=== PATIENT | male | born 1950 | race Caucasian/White ===

== ENCOUNTER 2018-11-21 12:18 | Outpatient (CLI) | payer MEDICARE, BC ==
--- NOTE | 2018-11-21 15:34 | MRI ---
MRI RIGHT SHOULDER WITHOUT IV CONTRAST: HISTORY: M25.511, rotator cuff arthropathy, right shoulder. Right shoulder pain following a fall and injury. FINDINGS: Severe AC joint arthrosis with some subchondral cystic changes with some downsloping of the anterior acromion. Very irregular full-thickness tear of the supraspinatus tendon with partial retraction and what appears to be some significant granulation tissue. Severe tendinopathy of the infraspinatus te ndon with partial-thickness undersurface tear. Irregular, complete biceps tendon tear with no intact intraarticular biceps and a very blunted biceps anchor and superior labrum. Extensive tear of subsc apularis tendon, at the insertion, with considerable attenuation and retraction, with a large interst itial tear. There is some intramuscular and perimuscular fat stranding of the anterior deltoid muscl e, evidence for strain. Multiple greater tuberosity intraosseous cysts, up to 1.3 cm. IMPRESSION: 1. Extensive rotator cuff tears, as above. 2. Completely torn, retracted biceps tendon with no intact intraarticular biceps tendon and a very a bnormal blunted biceps anchor and superior labrum. 3. Abnormal intramuscular and perimuscular fat stranding involving the anterior deltoid muscle, evid ence for strain. 4. Multiple fairly large, intraosseous cystic ganglia or degenerative cysts involving the greater tu berosity. 5. Severe acromioclavicular joint arthrosis changes. 6. Mild muscle volume loss of the supraspinatus muscle and moderate muscle volume loss of the subsca pularis muscle. POS: [facility]
--- NOTE | 2018-11-21 15:40 | MRI ---
LEFT SHOULDER MRI WITHOUT IV CONTRAST 11/21/18 HISTORY: M25.512 - tear of left rotator cuff, injury following a fall. Severe AC joint arthrosis changes are noted with prominent subchondral cystic changes. There is some downsloping of the anterior acromion and some prominent undersurface spurring of the lateral clavicle . Full thickness irregular tear of the tendinotic appearing supraspinatus tendon without significant retraction. There appears to be an interstitial component. There is also an incomplete thickness prim arily undersurface irregular tear of very tendinotic infraspinatus tendon with associated sentinel cy st at the myotendinous junction region. Small intramuscular lipoma in the supraspinatus muscle. Full thickness tear of the biceps tendon with a very severely blunted biceps anchor and superior labrum. V caio irregular full thickness insertional tear of subscapularis tendon particularly superiorly. Abnorm al biceps emily complex region. Abnormal fat stranding within the anterior deltoid muscle with some intramuscular and perimuscular fat stranding, evidence for muscle strain. Moderate muscle volume loss of the subscapularis muscle and mild muscle volume loss of the supraspinatus muscle. Small subchondr al interosseous cyst of the humerus greater tuberosity. IMPRESSION: Extensive rotator cuff tears including biceps tendon intra-articularly and subscapularis tendon. Sara re AC joint arthrosis. Intra and perimuscular fat stranding around the anterior deltoid muscle eviden ce for strain. POS: [facility]
== END 2018-11-21 12:19 | disposition home or self-care (01) ==
LOC: TBSIIMAG 12:18
PROVIDERS: ATTEND Orthopaedic Surgery
DX: M75.102 Unspecified rotator cuff tear or rupture of left shoulder, not specified as traumatic (principal); M25.511 Pain in right shoulder; M25.512 Pain in left shoulder; M12.811 Other specific arthropathies, not elsewhere classified, right shoulder; S46.812A Strain of other muscles, fascia and tendons at shoulder and upper arm level, left arm, initial encounter

== ENCOUNTER 2018-12-05 13:26 | Outpatient (CLI) | payer MEDICARE, BC ==
[2018-12-05 14:35] LABS: #Basophils 0.1 thou/uL (0.0-0.2); #Eosinphils 0.1 thou/uL (0.0-0.7); #Lymphocytes 1.8 thou/uL (1.20-3.40); #Monocytes 0.6 thou/uL (0.11-0.59); #Neutrophils 4.7 thou/uL (1.40-6.50); %Basophils 0.7 % (0.0-1.0); %Eosinophils 1.1 % (0.0-10.0); %Lymphocytes 24.8 % (21.0-51.0); %Monocytes 8.2 % (0.0-10.0); %Neutrophils 65.2 % (42.0-75.0); Hemoglobin 14.1 g/dL (14.0-18.0); Mean Corpuscular Hemoglobin 29.2 pg (27.0-31.0); Mean Corpuscular Volume 88.5 fL (78.0-98.0); Mean Platelet Volume 8.1 fL (7.4-10.4); Platelet Count 241 thou/uL (130-400); RBC Distribution Width 13.1 % (11.5-14.5); Red Blood Cell (RBC) Count 4.84 mill/uL (4.70-6.10); White Blood Cell (WBC) Count 7.2 thou/uL (4.8-10.8)
[2018-12-05 15:03] LABS: Anion Gap 12 mmol/L (10-20); BUN (Urea Nitrogen) 23 mg/dL (8.4-25.7); Calc. Creatinine Clearance 0 mL/min (70-130); Calcium 9.8 mg/dL (7.8-10.44); Carbon Dioxide 30 mmol/L (23-31); Chloride 101 mmol/L (98-107); Estimated GFR-MDRD 75; Glucose 99 mg/dL (80-115); Potassium 3.7 mmol/L (3.5-5.1); Sodium 139 mmol/L (136-145)
--- NOTE | 2018-12-08 17:56 | EKG ---
Test Reason : Blood Pressure : / mmHG Vent. Rate : 054 BPM Atrial Rate : 054 BPM P-R Int : 182 ms QRS Dur : 108 ms QT Int : 414 ms P-R-T Axes : 040 -42 047 degrees QTc Int : 392 ms Sinus bradycardia Left axis deviation Incomplete right bundle branch block Possible Anterior infarct , age undetermined Abnormal ECG When compared with ECG of 02-JAN-2011 22:13, Borderline criteria for Anterior infarct are now Present Confirmed by SHAWN GASPAR (2) on 12/08/2018 5:55:59 PM Referred By: IERO Confirmed By:SHAWN GASPAR
== END 2018-12-05 13:27 | disposition home or self-care (01) ==
LOC: LABBT 13:26
PROVIDERS: ATTEND Orthopaedic Surgery
DX: Z01.818 Encounter for other preprocedural examination (principal); M75.102 Unspecified rotator cuff tear or rupture of left shoulder, not specified as traumatic
CPT/HCPCS: 80048; 85025; 93005; 93010

== ENCOUNTER 2018-12-08 07:06 | Day surgery (SDC) | payer MEDICARE, BC ==
[2018-12-06 01:17] VITALS: BMI 30.4
[2018-12-08] MEDS ORDERED: Sodium Chloride 0.9% 100 ML ONE (07:56)
[2018-12-08] MEDS ORDERED: Tranexamic Acid 1,000 MG/10 ML VIAL ONE (07:56)
[2018-12-08] MEDS ORDERED: Vancomycin HCl 1.5 GM in Sodium Chloride 0.9% 250 ML 300 ML IVPB SCH (08:00)
[2018-12-08] MEDS ORDERED: Midazolam HCl 2 mg/2 ml Vial ONE (08:16)
[2018-12-08] MEDS ORDERED: Fentanyl 100 MCG/2 ML VIAL ONE ×2 (08:16→09:14)
[2018-12-08] MEDS ORDERED: traMADol HCl 50 MG TAB PO PRN ×2 (09:10)
[2018-12-08] MEDS ORDERED: Ropivacaine 0.2% 550 ML 550 ML NERVE BLCK SCH (09:10)
[2018-12-08] MEDS ORDERED: Ketorolac Tromethamine 30 MG/ML VIAL IVP PRN (09:10)
[2018-12-08] MEDS ORDERED: Promethazine HCl 25 MG/ML VIAL IM PRN (09:10)
[2018-12-08] MEDS ORDERED: Ondansetron PF 4 MG/2 ML Vial IVP PRN (09:10)
[2018-12-08] MEDS ORDERED: Zolpidem Tartrate 5 MG TAB PO PRN (09:10)
[2018-12-08] MEDS ORDERED: HYDROcodone/Acetaminophen 10/325 mg Tablet PO PRN ×2 (09:10)
[2018-12-08] MEDS ORDERED: Fentanyl 100 MCG/2 ML VIAL SLOW IVP PRN (09:11)
--- NOTE | 2018-12-08 17:54 | OP ---
DATE OF PROCEDURE: 12/08/2018 PREOPERATIVE DIAGNOSES: Left shoulder impingement, rotator cuff tear, acromioclavicular joint arthritis, and torn biceps tendon. POSTOPERATIVE DIAGNOSES: Left shoulder impingement, rotator cuff tear, acromioclavicular joint arthritis, and torn biceps tendon. PROCEDURES PERFORMED: 1. Left open subacromial decompression with open rotator cuff repair. 2. Open distal clavicle excision. 3. Open biceps tenotomy. NURSE RESEARCHER: Juwan Richards PA-C BLOOD LOSS: 50. COMPLICATIONS: None. ANESTHESIA: The patient had general anesthetic as well as preoperative block. IMPLANTS: Our implants to the left shoulder were 2 double loaded titanium anchors as well as 2 [employer] 4.75 mm SwiveLocks for a double row repair. DISPOSITION: He did go to recovery room in stable condition. INDICATIONS: A 68-year-old male, who fell and since that time has been unable to raise up his left arm. He was found to have a large cuff tear and at this time, wants to have this repaired. DESCRIPTION OF PROCEDURE: After all verbal consent forms were explained and signed, he was taken to the operative room and at this time, he was given general anesthetic. Once the level of anesthesia was appropriate, he was placed in a modified beach chair position with all bony prominences well padded. The left shoulder and upper extremity were then prepped draped in standard surgical fashion. Incision was made with 10 blade down through skin. Bovie was used to coagulate any brisk venous bleeding. We then went along the anterior third of the acromion down through raphe in the deltoid, taking this centrally until we got beyond the AC joint, making sure this was full thickness flap. We then took this off, exposing the anterior acromion and at the AC joint, T'd this and took this back to expose the distal clavicle as well. At this time, a Vito was used to protect the underlying soft tissue. A saw was used to perform an anteroinferior acromioplasty as well as removed the end of the clavicle. The edges were smoothed off with a rasp and we then placed a small amount of bone wax onto the bleeding cancellous bone. We then thoroughly irrigated and dried. At this time, we went towards repairing our cuff. We were able to remove the bursa from off the underlying cuff. We were able to easily find the rotator cuff tear. The new blade was used to excise the edge of the rotator cuff tissue to get down to good tissue. We then removed soft tissue off its tuberosity insertion site. We then raised up the cuff looking for the biceps tendon. There was just a couple of little fibers left. This was essentially stuck to the undersurface of the cuff. We did open up the bicipital groove just to make sure that the biceps tendon was not here in the screw and we were able to remove synovitic tissue from the groove itself. The remaining few fibers of the biceps were released in tenotomy fashion. At this time, we then placed 2 titanium double loaded anchors at the articular edge into the head of the humerus. These were then placed through the rotator cuff using a free needle in mattress fashion. Once these were then tied, we then performed our double row repair by taking 1 limb from each set of sutures and taken this anterior and posteriorly. We punched and placed a 4.75 SwiveLock x2 for our double row repair. The arm was then taken through full range of motion and the cuff was found to have no tension on it whatsoever. At this time, we thoroughly irrigated and dried. We then repaired our soft tissue by performing Mark-Nirav sutures through the deltoid and then taking this through the acromion bone with the needle. We then sewed our soft tissue at the AC joint over top of this with multiple interrupted big Vicryls, and we also overran our deltoid fascia. We then used 2-0 Vicryl and casimiro to close skin. A sterile bulky dressing was applied and at this time, he was awakened and taken to recovery room in stable condition after placing a sling on. All counts were correct at the end of the case and he did receive preoperative IV antibiotics. Job ID: [id number]
== END 2018-12-08 14:00 | disposition home or self-care (01) ==
LOC: SDC 07:06
PROVIDERS: ATTEND Orthopaedic Surgery
PROC: 0LQ20ZZ Repair Left Shoulder Tendon, Open Approach (ICD-10-PCS; principal; 2018-12-08)
PROC: 0RHK04Z Insertion of Internal Fixation Device into Left Shoulder Joint, Open Approach (ICD-10-PCS; 2018-12-08)
PROC: 0RNK0ZZ Release Left Shoulder Joint, Open Approach (ICD-10-PCS; 2018-12-08)
PROC: 0PBB0ZZ Excision of Left Clavicle, Open Approach (ICD-10-PCS; 2018-12-08)
DX: M75.102 Unspecified rotator cuff tear or rupture of left shoulder, not specified as traumatic (principal); M25.812 Other specified joint disorders, left shoulder; M19.012 Primary osteoarthritis, left shoulder; S46.112A Strain of muscle, fascia and tendon of long head of biceps, left arm, initial encounter; I10 Essential (primary) hypertension; E11.9 Type 2 diabetes mellitus without complications; Z79.82 Long term (current) use of aspirin; Z79.84 Long term (current) use of oral hypoglycemic drugs; Z79.899 Other long term (current) drug therapy; Z88.2 Allergy status to sulfonamides
CPT/HCPCS: 23120; 23130; 23412; A4306; C1713; J2250; J2795; J3010; J3370; J7050